=== PATIENT | male | born 1960 | race Caucasian/White ===

== ENCOUNTER 2019-02-14 09:24 | Outpatient (CLI) | payer BC ==
--- NOTE | 2019-02-14 14:20 | MRI ---
MRI OF THE PELVIS WITH AND WITHOUT IV CONTRAST: Date: 02/14/2019 INDICATION: History of elevated PSA with no history of prior prostate biopsy. TECHNIQUE: Multiplanar, multisequence MR images were obtained of the pelvis with and without contrast utilizing 18 mL of MultiHance. The images were interpreted on a separate 3D [employer] workstation for multiparame tric evaluation. FINDINGS: Prostate measures 4.9 x 3.7 x 4.0 cm with estimated prostatic volume of 37.52 mL. There are linear ar eas of low T2 signal abnormality seen involving the peripheral zone, most prominent within the medial left apex without evidence of restricted diffusion. No suspicious lesion is seen within the central zone of the prostate gland on the T2-weighted images. No pathologically enlarged lymph nodes are yash sly evident. No definite bone marrow signal abnormality is evident. There is scattered intermediate t o low signal intensity involving the bone marrow of the pelvis and lower lumbar spine suspicious for red marrow hyperplasia. No free fluid is identified. No definite neurovascular invasion is noted. IMPRESSION: PI-RADS Category 2 - Low (clinically significant cancer is unlikely to be present). POS: [facility]
[2019-02-14] MEDS ORDERED: Magnevist 469MG/ML 20 ML VIAL ONE (15:11)
== END 2019-02-14 09:25 | disposition home or self-care (01) ==
LOC: TBSIIMAG 09:24
PROVIDERS: ATTEND Urology
DX: R97.20 Elevated prostate specific antigen [PSA] (principal)
CPT/HCPCS: 72197; A9579

== ENCOUNTER 2020-01-07 12:36 | Outpatient (CLI) | payer BC ==
[2020-01-08 00:39] LABS: SARS-CoV-2 MS2 Positive; SARS-CoV-2 N Gene Negative; SARS-CoV-2 S Gene Negative; SARS-CoV-2 by NAA Not Detected (NotDetected); SARS-CoV-2 orf1ab Negative
== END 2020-01-07 12:37 | disposition home or self-care (01) ==
LOC: LABBT 12:36
PROVIDERS: ATTEND Internal Medicine Gastroenterology
DX: Z12.11 Encounter for screening for malignant neoplasm of colon (principal); Z20.828 Contact with and (suspected) exposure to other viral communicable diseases
CPT/HCPCS: 87635; U0003

== ENCOUNTER 2020-01-11 06:05 | Day surgery (SDC) | payer BC ==
[2020-01-10 10:02] VITALS: BMI 28.7
--- NOTE | 2020-01-11 01:39 | HP ---
HISTORY OF PRESENT ILLNESS: This is a 59-year-old male comes for colonoscopy for colon cancer screening. The patient has a history of colon cancer several years ago. The patient underwent surgery. He is doing very well over the last several years. No specific GI symptoms. His bowel movements are regular. No abdominal pain or hematochezia. He comes for colonoscopy for colon cancer screening. ALLERGIES: PENICILLIN. MEDICAL ILLNESSES: 1. Hypertension. 2. Hyperlipidemia. 3. Coronary artery disease. 4. Allergic rhinitis. SOCIAL HISTORY: Patient is a nonsmoker. He drinks alcohol socially. PHYSICAL EXAMINATION: VITAL SIGNS: Pulse is 70, blood pressure 120/70. HEENT: Conjunctivae are clear. CARDIOVASCULAR SYSTEM: Normal heart sounds. LUNGS: Clear to auscultation. ABDOMEN: Soft to palpate. Abdomen is nontender. No organomegaly. No masses. Bowel sounds normal. ADMITTING DIAGNOSIS: 59-year-old male, comes for a colonoscopy for colon cancer screening. Job ID: [id number]
--- NOTE | 2020-01-11 09:12 | OP ---
DATE OF PROCEDURE: 01/11/2020 PREOPERATIVE DIAGNOSES: Colon cancer screening, positive history of colon cancer surgery. POSTOPERATIVE DIAGNOSIS: Normal colonoscopy except for small hemorrhoids. The anastomotic area appeared healthy. DESCRIPTION OF PROCEDURE: The patient was placed on his left lateral position and was given sedation by Anesthesia Department. A rectal exam was done before the scope was advanced into the rectum. No lesions felt on rectal exam. A Pentax videocolonoscope was introduced into the rectum and advanced all the way to the anastomotic area. The anastomotic area appeared very healthy. Withdrawal of scope, in to the transverse colon, splenic flexure, descending colon, sigmoid colon, no lesion seen. Retroflexion of scope in the rectum showed small hemorrhoids. DISCHARGE PLANNING: This is a 59-year-old male, came for colonoscopy for colon cancer screening. The colonoscopy showed no pathology. DISCHARGE RECOMMENDATIONS: 1. The patient was advised to call me if he develops abdominal pain, hematochezia, or fever. 2. Repeat colonoscopy in 3 years. Job ID: [id number] [id number]
[2020-01-11] MEDS ORDERED: PROPOFOL 200 MG/20 ML VIAL ONE (10:23)
== END 2020-01-11 09:20 | disposition home or self-care (01) ==
LOC: SDC 06:05
PROVIDERS: ATTEND Internal Medicine Gastroenterology
PROC: 0DJD8ZZ Inspection of Lower Intestinal Tract, Via Natural or Artificial Opening Endoscopic (ICD-10-PCS; principal; 2020-01-11)
DX: Z12.11 Encounter for screening for malignant neoplasm of colon (principal); K64.9 Unspecified hemorrhoids; I10 Essential (primary) hypertension; E78.5 Hyperlipidemia, unspecified; I25.10 Atherosclerotic heart disease of native coronary artery without angina pectoris; J30.9 Allergic rhinitis, unspecified; Z85.038 Personal history of other malignant neoplasm of large intestine; Z79.82 Long term (current) use of aspirin; Z79.899 Other long term (current) drug therapy; Z88.0 Allergy status to penicillin; Z95.1 Presence of aortocoronary bypass graft
CPT/HCPCS: J2704

== ENCOUNTER 2022-11-10 07:56 | Outpatient (CLI) | payer OTHER | END 2022-11-10 07:57 | disposition home or self-care (01) | LOC: SCSMRI 07:56 | PROVIDERS: ATTEND Family Medicine | DX: M25.561 Pain in right knee (principal); G89.29 Other chronic pain; S83.241A Other tear of medial meniscus, current injury, right knee, initial encounter; M23.300 Other meniscus derangements, unspecified lateral meniscus, right knee ==

== ENCOUNTER 2022-12-20 07:45 | Outpatient (CLI) | payer BC ==
[2022-12-20 08:50] LABS: #Eosinphils 0.3 10x3/uL (0.0-0.5); #Monocytes 0.5 10x3/uL (0.0-1.1); #Neutrophils 2.8 10x3/uL (1.5-8.4); %Basophils 0.6 % (0.0-2.0); %Eosinophils 5.7 % (0.0-6.0); %Lymphocytes 24.5 % (18.0-47.0); %Monocytes 9.9 % (0.0-10.0); %Neutrophils 58.9 % (40.0-75.0); Hematocrit 45.3 % (38.8-50.0); Hemoglobin 14.9 g/dL (13.5-17.5); Mean Corpuscular HGB CONC 32.9 g/dL (32.0-36.0); Mean Corpuscular Hemoglobin 31.6 pg (27.0-33.0); Mean Corpuscular Volume 96.2 fl (81.2-95.1); Mean Platelet Volume 10.1 fl (7.4-10.4); Platelet Count 180 10x3/uL (150-450); RBC Distribution Width 13.1 % (11.5-14.5); Red Blood Cell (RBC) Count 4.71 10x6/uL (4.32-5.72); White Blood Cell (WBC) Count 4.7 10x3/uL (3.5-10.5)
[2022-12-20 10:10] LABS: Anion Gap 14 mmol/L (10-20); BUN (Urea Nitrogen) 15 mg/dL (8.4-25.7); Calc. Creatinine Clearance 0 mL/min (70-130); Calcium 9.3 mg/dL (7.8-10.44); Carbon Dioxide 25 mmol/L (22-29); Chloride 108 mmol/L (98-107); Estimated GFR 104; Glucose 105 mg/dL (70-105); Sodium 143 mmol/L (136-145)
== END 2022-12-20 07:46 | disposition home or self-care (01) ==
LOC: LABBT 07:45
PROVIDERS: ATTEND Orthopaedic Surgery
DX: Z01.818 Encounter for other preprocedural examination (principal); S83.206A Unspecified tear of unspecified meniscus, current injury, right knee, initial encounter
CPT/HCPCS: 80048; 85025; 93005; 93010

== ENCOUNTER 2022-12-23 06:55 | Day surgery (SDC) | payer BC ==
[2022-12-20 08:24] VITALS: BMI 24.3
[2022-12-23] MEDS ORDERED: PROPOFOL 20 ML ONE (07:40)
[2022-12-23] MEDS ORDERED: Lidocaine 2% PF 5 ML VIAL ONE (07:40)
[2022-12-23] MEDS ORDERED: EPINEPHrine 1 MG/ML VIAL ONE (07:40)
[2022-12-23] MEDS ORDERED: Bupivacaine PF 0.5% 30 ML VIAL ONE (07:41)
[2022-12-23] MEDS ORDERED: CEFAZOLIN 2 GM VIAL ONE (09:18)
[2022-12-23] MEDS ORDERED: Sodium Chloride 0.9% 100 ML ONE (09:18)
[2022-12-23] MEDS ORDERED: Ondansetron PF 4 MG/2 ML Vial ONE ×2 (09:41→10:12)
[2022-12-23] MEDS ORDERED: PROPOFOL 200 MG/20 ML VIAL ONE (09:41)
[2022-12-23] MEDS ORDERED: fentaNYL PF 100 MCG/2 ML SYRINGE ONE (09:58)
== END 2022-12-23 13:37 | disposition home or self-care (01) ==
LOC: SDC 06:55
PROVIDERS: ATTEND Orthopaedic Surgery
PROC: 0SBC0ZZ Excision of Right Knee Joint, Open Approach (ICD-10-PCS; principal; 2022-12-23)
DX: S83.241A Other tear of medial meniscus, current injury, right knee, initial encounter (principal); I25.10 Atherosclerotic heart disease of native coronary artery without angina pectoris; E78.5 Hyperlipidemia, unspecified; I10 Essential (primary) hypertension; Z80.0 Family history of malignant neoplasm of digestive organs; Z98.890 Other specified postprocedural states; Z88.0 Allergy status to penicillin; Z79.899 Other long term (current) drug therapy
CPT/HCPCS: J0171; J2001; J2405; J2704; J3490; S0020